=== PATIENT | male | born 1985 | race Caucasian/White ===

== ENCOUNTER 2022-08-20 21:53 | Emergency (ER) | payer OTHER, SELFPAY ==
--- NOTE | 2022-08-20 21:55 | XRR_ITS ---
PROCEDURE INFORMATION: Exam: XR Chest Exam date and time: 08/20/2022 10:11 PM Age: 64 years old Clinical indication: Pain; Chest pressure; Additional info: Cp TECHNIQUE: Imaging protocol: Radiologic exam of the chest. Views: 1 view. COMPARISON: No relevant prior studies available. FINDINGS: Lungs: See Heart/Mediastinum finding. Pleural spaces: Unremarkable. No pleural effusion. No pneumothorax. Heart/Mediastinum: Cardiomegaly and mild pulmonary vascular congestion. Bones/joints: Sternotomy wires. XR/XR chest 1V portable [id number] IMPRESSION: Cardiomegaly and mild pulmonary vascular congestion.
--- NOTE | 2022-08-20 22:01 | ECG_ITS ---
[facility] Test Date: 2022-08-20 Pat Name: Den Watkins Department: Room: Gender: Male [employer] Cutter: : 1985 Requested By: Tami Rome Order Number: [id number] Jeannine MD: Louisa Clark M.D. Measurements Intervals [place] Rate: 81 P: -16 ND: 148 QRS: -19 QRSD: 163 T: 0 QT: 417 QTc: 486 Interpretive Statements SINUS RHYTHM POSSIBLE LEFT ATRIAL ENLARGEMENT [-0.1mV P-WAVE IN V1/V2] RIGHT BUNDLE BRANCH BLOCK [120+ ms QRS DURATION, UPRIGHT V1, 40+ ms S IN I/aVL/V4/V5/V6] No previous ECG available for comparison Electronically Signed On 08-20-2022 23:13:06 CDT by Louisa Clark M.D. [id number]
--- NOTE | 2022-08-20 22:05 | ED_ITS ---
HPI - Chest Pain General: Chief Complaint: Chest Pain Stated Complaint: CP Time Seen by Provider: 08/20/22 21:55 Source: patient Mode of arrival: ambulatory Limitations: no limitations History of Present Illness: 37-year-old male states he started having chest pain roughly an hour and a half ago. He states it is in the left side of his chest with some radiation to his arm he denies any shortness of breath he states he took an aspirin and nitro his pain has improved he does have a history of high blood pressure no known coronary artery disease. Associated symptoms: Deny abdominal pain, dyspnea, fever(s), nausea or vomiting Review of Systems Const: Denies: fever(s), chills, body aches or change in appetite Eyes: Denies: blurry vision or eye discomfort ENMT: Denies: throat pain or dental pain Card: Reports: chest pain Resp: Denies: dyspnea GI: Denies: abdominal pain, nausea, vomiting or diarrhea : Denies: dysuria Musc: Denies: neck pain or back pain Skin/Breast: Denies: rash Neuro: Denies: headache(s) Psych: Denies: depression Kevin/Lymph: Denies: easy bruising All/Imm: Denies: urticaria PFSH ED PFSH: Medical History (Updated 08/21/22 @ 01:00 by Tami Rome MD) Hypertension Social History (Updated 08/20/22 @ 22:06 by Tami Rome MD) Substance/Drug Use: never Physical Exam Const: COMMON NORMALS: no acute distress, patient oriented x3 and healthy appearing HENMT: COMMON NORMALS: normocephalic and atraumatic HEAD & SCALP: normocephalic and atraumatic Eye: COMMON NORMALS: Equal, round and reactive pupils present and EOMs intact bilaterally PUPIL: Yes Equal, round and reactive pupils present Neck/C-Spine: COMMON NORMALS: full ROM and supple Chest: COMMONS NORMALS: normal inspection of the chest and normal palpation of entire chest wall Resp: COMMON NORMALS: normal respiratory effort, No retractions, No use of accessory muscles and clear to auscultation bilaterally AUSCULTATION: clear to auscultation bilaterally Cardio: COMMON NORMALS: regular rate, regular rhythm and No murmurs present (Cardio) RATE: regular rate RHYTHM: regular rhythm GI: COMMON NORMALS: Normal to inspection, nondistended, normoactive bowel sounds present, Soft to palpation, non-tender and no masses PALPATION: Yes Soft to palpation Extremity: COMMON NORMALS: normal to inspection and full ROM Neuro: COMMON NORMALS: patient oriented x3, moves all extremities and no focal motor deficits Psych: COMMON NORMALS: mental status grossly normal, Normal thought process present and cooperative THOUGHT PROCESS: Normal thought process present Skin: COMMON NORMALS: no rashes or lesions noted and no wounds GENERAL SKIN EXAM: no rashes or lesions noted Course Vital Signs: Vital signs: Vital Signs Temperature 97.8 F 08/20/22 22:07 Pulse Rate 84 08/21/22 00:45 Respiratory Rate 21 H 08/21/22 00:45 Blood Pressure 119/74 08/21/22 00:45 Pulse Oximetry 95 08/21/22 00:45 Oxygen Delivery Me thod 08/20/22 22:07 MDM - Chest Pain Medical Decision Making Patient presents here chest pain is atypical in nature he is well-appearing here has been pain-free here his EKGs along with troponins are normal D-dimer is negative as well he is stable for discharge he is to follow-up with PCP and return if worsening he understands agrees to plan. Lab Data 08/20/22 22:08 08/20/22 22:08 Radiology Impressions Chest X-Ray 08/20/22 21:55 IMPRESSION: Cardiomegaly and mild pulmonary vascular congestion. Laboratory Results WBC 11.5 10^3/uL (4.0-10.0) H 08/20/22 22:08 RBC 5.53 10^6/uL (4.1-5.3) H 08/20/22 22:08 Hgb 16.2 g/dL (11.7-16.6) 08/20/22 22:08 Hct 47.1 % (42.0-52.0) 08/20/22 22:08 MCV 85.2 fl (80-94) 08/20/22 22:08 MCH 29.3 pg (28.0-34.0) 08/20/22 22:08 MCHC 34.4 g/dL (30.0-36.0) 08/20/22 22:08 RDW 12.6 % (12.1-15.1) 08/20/22 22:08 Plt Count 248 10^3/cmm (130-400) 08/20/22 22:08 MPV 10.8 fL (7.4-10.4) H 08/20/22 22:08 Neut % (Auto) 60.4 % 08/20/22 22:08 Lymph % (Auto) 30.0 % 08/20/22 22:08 Emmons % (Auto) 7.4 % 08/20/22 22:08 Eos % (Auto) 1.0 % 08/20/22 22:08 Baso % (Auto) 0.9 % 08/20/22 22:08 Neut # (Auto) 6.91 10^3/uL (1.8-7.7) 08/20/22 22:08 Lymph # (Auto) 3.4 10^3/uL (0.8-4.8) 08/20/22 22:08 Emmons # (Auto) 0.9 10^3/uL (0.2-0.9) 08/20/22 22:08 Eos # (Auto) 0.1 10^3/uL (0.0-0.8) 08/20/22 22:08 Baso # (Auto) 0.1 10^3/uL (0.0-0.1) 08/20/22 22:08 Nucleated RBC % (auto) 0 % 08/20/22 22:08 Nucleated RBCs # 0.0 /100WBC 08/20/22 22:08 PT 14.60 SECONDS (12.1-14.9) 08/20/22 22:08 INR 1.11 (0.8-1.2) 08/20/22 22:08 D-Dimer 0.40 ug/mIFEU (0-0.59) 08/20/22 22:08 Sodium 140 mmol/L (136-145) 08/20/22 22:08 Potassium 3.6 mmol/L (3.5-5.1) 08/20/22 22:08 Chloride 105 mmol/L (98-107) 08/20/22 22:08 Carbon Dioxide 23 mmol/L (22-29) 08/20/22 22:08 Anion Gap 15.6 (5-19) 08/20/22 22:08 BUN 16 mg/dL (6-20) 08/20/22 22:08 Creatinine 1.2 mg/dL (0.7-1.2) 08/20/22 22:08 GFR Calculation 68.1 mL/min (90-130) L 08/20/22 22:08 Glucose 170 mg/dL (65-115) H 08/20/22 22:08 Calculated Osmolality 295 mOsm/kg (285-295) 08/20/22 22:08 Calcium 9.0 mg/dL (8.5-10.5) 08/20/22 22:08 Total Bilirubin 0.4 mg/dL (0.15-1.2) 08/20/22 22:08 AST 20 U/L (0-40) 08/20/22 22:08 ALT 33 U/L (0-41) 08/20/22 22:08 Alkaline Phosphatase 77 U/L (40-130) 08/20/22 22:08 Troponin T Baseline 14 ng/L (0-15) 08/20/22 22:08 Troponin T 120 Minute 12.21 ng/L (0-15) 08/21/22 00:30 Total Protein 7.0 g/dL (6.6-8.7) 08/20/22 22:08 Albumin 3.9 g/dL (3.5-5.2) 08/20/22 22:08 Globulin 3.1 g/dL (1.3-4.6) 08/20/22 22:08 EKG Data EKG 1: I personally reviewed and interpreted this EKG as follows: EKG interpretation date: 08/20/22 EKG interpretation time: 22:01 Interpretation: nsr hr [address] elevation rbbb qrs 163 qtc 455 Discharge Plan Discharge Patient Disposition: Home Clinical Impression: Chest pain Discharge Orders: Discharge ED (Routine); Ordered 08/21/22 Ordered By: Tami Rome Discharge Diet: Advance as tolerated Discharge Activity: Resume usual activity Patient Instructions: Chest Pain (ED) Coding Level of Care Code ED Conventional Machinist for Osvaldo Taveras
[2022-08-20 22:07] VITALS: BP 126/64; PULSE 81; RESP 17; TEMP 36.6; O2SAT 97; BMI 47.4
[2022-08-20 22:29] LABS: Basophils # 0.1 10^3/uL (0.0-0.1); Basophils % 0.9 %; Eosinophils # 0.1 10^3/uL (0.0-0.8); Hematocrit 47.1 % (42.0-52.0); Hemoglobin 16.2 g/dL (11.7-16.6); Lymphocytes # 3.4 10^3/uL (0.8-4.8); Mean Corpuscular HGB Conc 34.4 g/dL (30.0-36.0); Mean Corpuscular Hemoglobin 29.3 pg (28.0-34.0); Mean Corpuscular Volume 85.2 fl (80-94); Mean Platelet Volume 10.8 fL (7.4-10.4); Monocytes # 0.9 10^3/uL (0.2-0.9); Monocytes % 7.4 %; Neutrophils # 6.91 10^3/uL (1.8-7.7); Neutrophils % 60.4 %; Nucleated Red Blood Cells % 0 %; Platelet Count 248 10^3/cmm (130-400); Red Blood Count 5.53 10^6/uL (4.1-5.3); Red Cell Distribution Width 12.6 % (12.1-15.1); White Blood Count 11.5 10^3/uL (4.0-10.0)
[2022-08-20 22:54] LABS: Troponin(5th) Baseline 14 ng/L (0-15)
[2022-08-20 22:55] LABS: Alanine Aminotransferase 33 U/L (0-41); Albumin Level 3.9 g/dL (3.5-5.2); Alkaline Phosphatase 77 U/L (40-130); Anion Gap 15.6 (5-19); Aspartate Amino Transferase 20 U/L (0-40); Blood Urea Nitrogen 16 mg/dL (6-20); Carbon Dioxide 23 mmol/L (22-29); Chloride 105 mmol/L (98-107); Globulin 3.1 g/dL (1.3-4.6); Glomerular Filtration Rate 68.1 mL/min (90-130); Glucose 170 mg/dL (65-115); Osmolality Calculated 295 mOsm/kg (285-295); Potassium 3.6 mmol/L (3.5-5.1); Sodium 140 mmol/L (136-145); Total Bilirubin 0.4 mg/dL (0.15-1.2)
[2022-08-20 23:10] LABS: INR 1.11 (0.8-1.2)
[2022-08-21 00:30] VITALS: BP 135/80; PULSE 90; RESP 20; O2SAT 97
[2022-08-21 00:45] VITALS: BP 119/74; PULSE 84; RESP 21; O2SAT 95
[2022-08-21 00:53] LABS: Troponin 5 2HR 12.21 ng/L (0-15)
[2022-08-21 01:17] VITALS: BP 123/74; PULSE 92; RESP 19; O2SAT 97
[2022-08-21 01:58] LABS: Troponin 5 2HR Delta -1.79 ABS# (0-10)
--- NOTE | 2022-08-23 13:30 | DCPLANNER ---
manager of photography called patient due to no primary care physician - patient stated that he does have a primary care physician - he lives in [place]
== END 2022-08-21 01:19 | disposition home or self-care (01) ==
PROVIDERS: Emergency Provider Emergency Medicine
DX: R07.9 Chest pain, unspecified (principal); I11.9 Hypertensive heart disease without heart failure
CPT/HCPCS: 71045; 80053; 84484; 85025; 85378; 85610; 93005; 99285